=== PATIENT | female | born 1995 | race Asian ===

== ENCOUNTER 2024-12-12 10:13 | Inpatient (IN) | payer BC, MEDICAID ==
[2024-12-09 13:21] LABS: Hematocrit 38.8 % (34.9-44.5); Hemoglobin 12.3 g/dL (12.0-15.5); Platelet Count 180 10x3/uL (130-400)
[2024-12-09 13:35] LABS: Syphilis Antibody Index 0.06 S/CO (<1.00 Non-Reactive)
[2024-12-09 13:50] LABS: Hep B Surf Ag Non-Reactive S/CO (NonReactive)
[2024-12-12 10:41] VITALS: BMI 31.9
[2024-12-12] MEDS ORDERED: hydrALAZINE 20 MG/ML VIAL SLOW IVP PRN ×2 (10:41→19:21)
[2024-12-12] MEDS ORDERED: Bicitra 30 ML UDCUP PO PRN (10:41)
[2024-12-12] MEDS ORDERED: Methylergonovine 0.2 MG/ML VIAL IM PRN ×2 (10:41→19:21)
[2024-12-12] MEDS ORDERED: Ondansetron PF 4 MG/2 ML Vial IVP PRN ×3 (10:41→16:12)
[2024-12-12] MEDS ORDERED: Carboprost 250 MCG/ML AMP IM PRN (10:41)
[2024-12-12] MEDS ORDERED: Famotidine/PF 20 mg/2ml Vial SLOW IVP PRN (10:41)
[2024-12-12] MEDS ORDERED: Diphenoxylate HCl/Atropine Tablet PO PRN (10:41)
[2024-12-12] MEDS ORDERED: Tranexamic Acid 1,000 MG/10 ML VIAL IVP PRN (10:41)
[2024-12-12] MEDS ORDERED: Azithromycin 500 MG in Sodium Chloride 0.9% 250 ML 250 ML IVPB SCH (10:45)
[2024-12-12] MEDS ORDERED: Oxytocin 30 units/NS 500 ML 500 ML IV SCH ×2 (10:45→19:30)
[2024-12-12] MEDS ORDERED: Meperidine HCl/PF 25 MG (1 mL) VIAL SLOW IVP PRN (16:12)
[2024-12-12] MEDS ORDERED: diphenhydrAMINE 50 MG/ML VIAL IVP PRN (16:12)
[2024-12-12] MEDS ORDERED: Ketorolac Tromethamine 30 MG (1 mL) VIAL IVP PRN (16:12)
[2024-12-12] MEDS ORDERED: Communication Order-Pharmacy FS SCH (16:15)
[2024-12-12] MEDS ORDERED: Ketorolac Tromethamine 30 MG (1 mL) VIAL IVP SCH ×2 (16:15→23:45)
[2024-12-12] MEDS ORDERED: Erythromycin Base 0.5% Oint 1 GM TUBE ONE (18:27)
[2024-12-12] MEDS ORDERED: Hepatitis B Vaccine 10 MCG/0.5 ML SYR ONE (18:27)
[2024-12-12] MEDS ORDERED: Methylergonovine 0.2 MG TAB PO PRN (19:21)
[2024-12-12] MEDS ORDERED: Lanolin Ointment 7 GM TUBE TOP PRN (19:21)
[2024-12-12] MEDS ORDERED: Bisacodyl 10 MG SUPP PR PRN (19:21)
[2024-12-12] MEDS ORDERED: Acetaminophen 325 MG TAB PO PRN (19:21)
[2024-12-12] MEDS ORDERED: Boostrix 0.5 ML (Tdap) VIAL (>/=7 yrs of age) IM ONE (21:00)
[2024-12-12] MEDS: CEFAZOLIN 2 GM VIAL ONE (21:57)
[2024-12-12] MEDS: Ondansetron PF 4 MG/2 ML Vial ONE (21:57)
[2024-12-12] MEDS: Oxytocin 10 UNITS/ML VIAL ONE (21:57)
[2024-12-12] MEDS: Famotidine/PF 20 mg/2ml Vial ONE (21:57)
[2024-12-12] MEDS: PHENYLEPHRINE-NS 100 MCG/ML 10 ML SYRINGE ONE (21:57)
[2024-12-12] MEDS: Ondansetron PF 4 MG/2 ML Vial IVP PRN (23:32)
[2024-12-13] MEDS: Ketorolac Tromethamine 30 MG (1 mL) VIAL IVP SCH (00:18)
[2024-12-13 06:04] LABS: Hematocrit 35.4 % (34.9-44.5); Hemoglobin 11.2 g/dL (12.0-15.5); Mean Corpuscular Hemoglobin 23.8 pg (27.0-33.0); Mean Corpuscular Volume 75.2 fL (81.6-98.3); Platelet Count 129 10x3/uL (130-400); Red Blood Cell (RBC) Count 4.71 10x6/uL (3.90-5.03); White Blood Cell (WBC) Count 10.42 10x3/uL (3.5-10.5)
[2024-12-13] MEDS: Ketorolac Tromethamine 30 MG (1 mL) VIAL IVP PRN (06:28)
[2024-12-13] MEDS: Simethicone Chewable 80 MG TAB PO PRN (09:49)
[2024-12-13] MEDS: HYDROcodone/Acetaminophen 5/325 mg Tablet PO PRN (09:49)
[2024-12-13] MEDS: diphenhydrAMINE 25 MG CAP PO PRN (09:59)
[2024-12-13] MEDS: Ferrous Sulfate 325 MG TAB PO SCH (21:00)
[2024-12-13] MEDS ORDERED: Ibuprofen 800 MG TAB PO SCH (22:00)
[2024-12-14] MEDS: Ibuprofen 800 MG TAB PO SCH (05:44)
[2024-12-14 09:06] VITALS: BP 118/65; TEMP 98.3
[2024-12-14] MEDS: Measles/Mumps/Rubella 10 MCG/0.5 ML VIAL SC ONE (16:16)
[2024-12-17] MEDS ORDERED: Ibuprofen 800 MG TAB PO SCH (22:00)
== END 2024-12-14 17:00 | disposition home or self-care (01) | DRG 788 ==
LOC: CSHLD 10:13 → CSHPP 21:36
PROVIDERS: ADMIT Family Medicine; ATTEND Family Medicine
PROC: 10D00Z1 Extraction of Products of Conception, Low, Open Approach (ICD-10-PCS; principal; 2024-12-12)
PROC: 3E03329 Introduction of Other Anti-infective into Peripheral Vein, Percutaneous Approach (ICD-10-PCS; 2024-12-12)
DX: O34.211 Maternal care for low transverse scar from previous cesarean delivery (principal); Z3A.39 39 weeks gestation of pregnancy; Z37.0 Single live birth; O26.893 Other specified pregnancy related conditions, third trimester; Z67.41 Type O blood, Rh negative
CPT/HCPCS: 36415; 51702; 85014; 85018; 85027; 85049; 86780; 86850; 86900; 86901; 87340; 90707; J1308; J1885; J2274; J2405; J2590; J7120